=== PATIENT | male | born 1995 | race Caucasian/White ===

== ENCOUNTER 2016-09-14 16:44 | Emergency (ER) | payer SELFPAY ==
[2016-09-14] MEDS ORDERED: Ketorolac Tromethamine 30 MG/ML VIAL ONE (17:02)
[2016-09-14 17:16] LABS: #Basophils 0.1 thou/uL (0.0-0.2); #Eosinphils 0.8 thou/uL (0.0-0.7); #Lymphocytes 2.9 thou/uL (1.20-3.40); #Monocytes 0.6 thou/uL (0.11-0.59); #Neutrophils 4.4 thou/uL (1.40-6.50); %Basophils 1.2 % (0.0-1.0); %Eosinophils 8.6 % (0.0-10.0); %Lymphocytes 33.5 % (28.0-48.0); %Monocytes 6.6 % (0.0-4.0); %Neutrophils 50.1 % (31.0-61.0); Hemoglobin 17.4 g/dL (14.0-18.0); Mean Corpuscular HGB CONC 32.9 g/dL (32.0-36.0); Mean Corpuscular Hemoglobin 30.3 pg (25.0-35.0); Mean Platelet Volume 10.9 fL (7.4-10.4); Platelet Count 199 thou/uL (130-400); RBC Distribution Width 12.2 % (11.5-14.5); Red Blood Cell (RBC) Count 5.74 mill/uL (4.00-5.20); White Blood Cell (WBC) Count 8.8 thou/uL (4.8-10.8)
[2016-09-14 17:31] LABS: ALT (SGPT) 29 U/L (8-55); AST (SGOT) 20 U/L (5-34); Albumin 4.6 g/dL (3.5-5.0); Alkaline Phosphatase 71 U/L (Less than 750); Anion Gap 14 mmol/L (10-20); BUN (Urea Nitrogen) 9 mg/dL (8.9-20.6); Bilirubin, Total 0.4 mg/dL (0.2-1.2); CK (CPK) 94 U/L (30-200); Calc. Creatinine Clearance 0 mL/min (70-130); Calcium 9.4 mg/dL (7.8-10.44); Carbon Dioxide 25 mmol/L (22-29); Chloride 108 mmol/L (98-107); Estimated GFR-MDRD Greater than 90; Globulin 2.8 g/dL (2.4-3.5); Glucose 92 mg/dL (70-105); Lipase 15 U/L (8-78); Potassium 4.1 mmol/L (3.5-5.1); Protein, Total 7.4 g/dL (6.0-8.3); Sodium 143 mmol/L (136-145)
[2016-09-14 17:33] LABS: CKMB 1.2 ng/mL (0-6.6); Troponin I Less than 0.010 ng/mL (< 0.028)
--- NOTE | 2016-09-14 19:34 | RAD ---
CHEST TWO VIEWS: Date: 09-14-16 FINDINGS: The heart is normal in size and the lungs are clear. No infiltrate or effusion was seen. There is no sign of pneumonia. The mediastinum appears normal and the trachea is midline. IMPRESSION: No acute thoracic finding. POS: HOME
== END 2016-09-14 18:10 | disposition home or self-care (01) ==
LOC: BURERS 16:44
DX: R07.89 Other chest pain (principal); F17.210 Nicotine dependence, cigarettes, uncomplicated
CPT/HCPCS: 36415; 71020; 80053; 82553; 83690; 84484; 85025; 85379; 93005; 94760; 96361; 96374; J1885

== ENCOUNTER 2018-06-12 06:48 | Emergency (ER) | payer OTHER, SELFPAY ==
[2018-06-12 07:02] LABS: #Basophils 0.1 thou/uL (0.0-0.2); #Eosinphils 0.5 thou/uL (0.0-0.7); #Lymphocytes 2.4 thou/uL (1.20-3.40); #Monocytes 0.6 thou/uL (0.11-0.59); #Neutrophils 4.1 thou/uL (1.40-6.50); %Basophils 1.2 % (0.0-1.0); %Eosinophils 6.5 % (0.0-10.0); %Lymphocytes 31.7 % (21.0-51.0); %Monocytes 7.3 % (0.0-10.0); %Neutrophils 53.3 % (42.0-75.0); Hemoglobin 16.2 g/dL (14.0-18.0); Mean Corpuscular HGB CONC 33.9 g/dL (32.0-36.0); Mean Corpuscular Hemoglobin 30.9 pg (27.0-31.0); Mean Corpuscular Volume 91.1 fL (78.0-98.0); Mean Platelet Volume 9.6 fL (7.4-10.4); Platelet Count 166 thou/uL (130-400); RBC Distribution Width 12.5 % (11.5-14.5); Red Blood Cell (RBC) Count 5.26 mill/uL (4.70-6.10); White Blood Cell (WBC) Count 7.7 thou/uL (4.8-10.8)
[2018-06-12 07:10] LABS: INR-International Normal Ratio 0.9; PTT 30.9 SEC (22.9-36.1); Prothrombin Time 12.3 SEC (12.0-14.7)
[2018-06-12 07:16] LABS: ALT (SGPT) 41 U/L (8-55); AST (SGOT) 49 U/L (5-34); Albumin 4.4 g/dL (3.5-5.0); Alkaline Phosphatase 66 U/L (40-150); Anion Gap 13 mmol/L (10-20); BUN (Urea Nitrogen) 11 mg/dL (8.9-20.6); Bilirubin, Total 0.5 mg/dL (0.2-1.2); Calc. Creatinine Clearance 0 mL/min (70-130); Calcium 9.6 mg/dL (7.8-10.44); Carbon Dioxide 24 mmol/L (22-29); Chloride 109 mmol/L (98-107); Estimated GFR-MDRD Greater than 90; Globulin 2.5 g/dL (2.4-3.5); Glucose 106 mg/dL (70-105); Potassium 3.2 mmol/L (3.5-5.1); Protein, Total 6.9 g/dL (6.0-8.3); Sodium 143 mmol/L (136-145)
[2018-06-12] MEDS ORDERED: Adacel (T-DAP) 0.5 ML SYRINGE ONE (07:26)
[2018-06-12] MEDS ORDERED: Ketorolac Tromethamine 30 MG/ML VIAL ONE (07:26)
[2018-06-12 08:16] LABS: Clarity Clear (Clear); Leukocyte Negative (Negative); Nitrite Negative (Negative); Specific Gravity, Urine 1.015 (1.005-1.030)
[2018-06-12 08:17] LABS: Bilirubin Negative (Negative); Blood, Urine Small (Negative); Glucose, Urine (Dipstick) Negative (Negative); Protein, Urine (Dipstick) Negative (Neg-Trace); Urobilinogen 0.2 mg/dL (0.2-1.0)
[2018-06-12 08:23] LABS: Bacteria/HPF Rare-Few HPF (None Seen); Crystals/HPF 1+ AMORPH PHOS HPF (Negative); Hyaline Casts/LPF 0-3 HYALINE CAST LPF (0-3 Hyaline); RBC/HPF 0-3 HPF (0-3); Squamous Epithelial 0-3 HPF (0-3); WBC/HPF 0-3 HPF (0-3)
--- NOTE | 2018-06-12 08:45 | RAD ---
RIGHT KNEE 4 VIEWS: DATE: 06/12/2018. FINDINGS: No fracture, dislocation, or joint effusion was seen. The patella appears intact. The joint space i s normal in width. IMPRESSION: No acute bony finding. POS: HOME
--- NOTE | 2018-06-12 08:47 | RAD ---
PORTABLE CHEST: DATE: 06/12/2018. FINDINGS: Comparison was made with the 09/14/2016 study. The heart is normal in size. The mediastinum shows no widening or shift. The trachea is midline. T here is no evidence of pneumothorax or pleural effusion. The lungs are fully inflated and clear. No fractures were appreciated. IMPRESSION: No acute thoracic finding. POS: HOME
--- NOTE | 2018-06-12 17:19 | CT ---
CT OF THE CERVICAL SPINE: DATE: 06/12/2018. FINDINGS: Spiral CT of the cervical spine was done following trauma. Axial slices were acquired, then coronal and sagittal reconstructions were done. No fracture, dislocation, or disk space narrowing was seen. The c1 to dens distance is normal and th e soft tissues are normal in thickness. No gross disk bulge, foraminal stenosis, or central canal st enosis was seen. IMPRESSION: No acute traumatic findings. Notified of scans at 0807. (delayed [facility] reading). Results called to Dr. Martinez at 0815. CODE CR POS: HOME
--- NOTE | 2018-06-12 17:20 | CT ---
FINAL REPORT CT OF THE BRAIN WITHOUT CONTRAST: DATE: 06/12/2018. FINDINGS: The noncontrast study shows normal-sized ventricles with no shift. No intracranial bleedin g or extraaxial hematoma was seen. There is no sign of mass, edema, or stroke. The skull appears in tact. There is mucosal thickening in the ethmoid sinuses that appears chronic. No gross facial frac tures were identified. IMPRESSION: No acute intracranial findings. Notified of scans of 0807 ([facility] delayed reading). Called results to Dr. Martinez at 0815. POS: HOME
--- NOTE | 2018-06-12 17:20 | CT ---
CT FACIAL BONES: DATE: 06/12/2018. FINDINGS: Spiral CT of the face was performed for evaluation following trauma. Axial slices were acquired, the n coronal and sagittal reconstructions were done. An area of soft tissue swelling is seen just at and below the right orbit and along the upper right c heek. No underlying fracture is seen. All facial bones appear intact. The nasal bones and zygomati c arches were unremarkable. There are no air fluid levels in any of the paranasal sinuses, but there is chronic mucosal thickening in the ethmoid sinuses bilaterally into and to a lesser extent in port ions of the maxillary sinuses. Each of the latter seems somewhat small. The retroorbital areas are normal in appearance. The mandible appears intact. IMPRESSION: 1. Soft tissue swelling below the right orbit, but no facial fracture is seen. 2. Chronic mucosal thickening in the sinuses, predominantly ethmoid sinuses. Notified of scan at 0807 ([facility] delayed reading). Called results to Dr. Martinez at 0815. CODE CR POS: HOME
== END 2018-06-12 08:30 | disposition home or self-care (01) ==
LOC: BURERS 06:48
DX: S00.83XA Contusion of other part of head, initial encounter (principal); S80.01XA Contusion of right knee, initial encounter; F17.210 Nicotine dependence, cigarettes, uncomplicated; V89.2XXA Person injured in unspecified motor-vehicle accident, traffic, initial encounter
CPT/HCPCS: 36415; 70450; 70486; 71045; 72125; 80053; 81003; 81015; 85025; 85610; 85730; 90471; 90715; 94760; 96374; G0390; J1885

== ENCOUNTER 2019-05-03 22:49 | Emergency (ER) | payer SELFPAY ==
--- NOTE | 2019-05-03 23:19 | RAD ---
EXAM: XR Hand Rt 3 View STANDARD PROVIDED CLINICAL HISTORY: Pain status post injury COMPARISON: None FINDINGS: Evaluation is limited due to suboptimal exposure. There is cortical irregularity seen involving the b ase of the fourth metacarpal suspicious for intra-articular fracture. No additional fracture is evident. Alignment appears anatomic. Joint spaces appear preserved. IMPRESSION: Findings compatible with nondisplaced probably intra-articular base of fourth metacarpal fracture.
[2019-05-03] MEDS ORDERED: Ibuprofen 200 MG TAB ONE (23:31)
== END 2019-05-03 23:34 | disposition home or self-care (01) ==
LOC: BURERS 22:49
DX: S62.344A Nondisplaced fracture of base of fourth metacarpal bone, right hand, initial encounter for closed fracture (principal); F17.220 Nicotine dependence, chewing tobacco, uncomplicated; W22.8XXA Striking against or struck by other objects, initial encounter
CPT/HCPCS: 26605

== ENCOUNTER 2020-03-26 09:04 | Emergency (ER) | payer SELFPAY ==
[2020-03-26] MEDS ORDERED: Lidocaine 1% w/Epinephrine 1:100K 20 ML VIAL ONE (09:18)
[2020-03-26] MEDS ORDERED: Bacitracin 1 PK ONE (09:33)
== END 2020-03-26 09:42 | disposition home or self-care (01) ==
LOC: BURERS 09:04
DX: S81.812A Laceration without foreign body, left lower leg, initial encounter (principal); F17.220 Nicotine dependence, chewing tobacco, uncomplicated; Z85.841 Personal history of malignant neoplasm of brain; W45.8XXA Other foreign body or object entering through skin, initial encounter
CPT/HCPCS: 12004

== ENCOUNTER 2020-06-17 10:10 | Emergency (ER) | payer SELFPAY ==
[2020-06-17] MEDS ORDERED: Lidocaine 1% w/Epinephrine 1:100K 20 ML VIAL ONE (10:31)
== END 2020-06-17 11:00 | disposition home or self-care (01) ==
LOC: BURERS 10:10
DX: L02.211 Cutaneous abscess of abdominal wall (principal)
CPT/HCPCS: 10060

== ENCOUNTER 2021-09-16 00:18 | Emergency (ER) | payer SELFPAY ==
[2021-09-16] MEDS ORDERED: Acetaminophen 500 MG TAB ONE (00:54)
[2021-09-16] MEDS ORDERED: Aspirin Chewable 81 MG TAB ONE (00:54)
[2021-09-16 01:25] LABS: ALT (SGPT) 19 U/L (8-55); AST (SGOT) 15 U/L (5-34); Albumin 5.2 g/dL (3.5-5.0); Alkaline Phosphatase 69 U/L (40-110); Anion Gap 21 mmol/L (10-20); BUN (Urea Nitrogen) 14 mg/dL (8.9-20.6); Bilirubin, Total 0.9 mg/dL (0.2-1.2); CK (CPK) 155 U/L (30-200); Calc. Creatinine Clearance 0 mL/min (70-130); Calcium 10.5 mg/dL (7.8-10.44); Carbon Dioxide 26 mmol/L (22-29); Chloride 100 mmol/L (98-107); Globulin 3.5 g/dL (2.4-3.5); Glucose 105 mg/dL (70-105); Potassium 4.4 mmol/L (3.5-5.1); Protein, Total 8.7 g/dL (6.0-8.3); Sodium 143 mmol/L (136-145)
[2021-09-16 01:29] LABS: #Basophils 0.1 thou/uL (0.0-0.2); #Lymphocytes 2.4 thou/uL (1.20-3.40); #Monocytes 0.9 thou/uL (0.11-0.59); #Neutrophils 14.7 thou/uL (1.40-6.50); %Basophils 0.6 % (0.0-1.0); %Eosinophils 0.1 % (0.0-10.0); %Lymphocytes 13.3 % (21.0-51.0); %Monocytes 4.7 % (0.0-10.0); %Neutrophils 81.3 % (42.0-75.0); Hemoglobin 18.1 g/dL (14.0-18.0); Mean Corpuscular HGB CONC 34.9 g/dL (32.0-36.0); Mean Corpuscular Hemoglobin 31.8 pg (27.0-31.0); Mean Corpuscular Volume 91.1 fL (78.0-98.0); Mean Platelet Volume 9.7 fL (7.4-10.4); Platelet Count 269 thou/uL (130-400); RBC Distribution Width 11.6 % (11.5-14.5); White Blood Cell (WBC) Count 18.1 thou/uL (4.8-10.8)
== END 2021-09-16 02:54 | disposition home or self-care (01) ==
LOC: BURERS 00:18
DX: T67.5XXA Heat exhaustion, unspecified, initial encounter (principal); R07.2 Precordial pain; E86.9 Volume depletion, unspecified; F17.200 Nicotine dependence, unspecified, uncomplicated; X30.XXXA Exposure to excessive natural heat, initial encounter
CPT/HCPCS: 71046; 80053; 82550; 84484; 85025; 85379; 93005; 96360; 96361